=== PATIENT | female | born 1955 | race Caucasian/White ===

== ENCOUNTER 2017-06-04 09:18 | Outpatient (CLI) | payer OTHER ==
[2016-08-28 17:24] VITALS: BP 172/68
[2017-06-04 10:13] LABS: eGFR (African) > 60; eGFR (Non-African) > 60
== END 2017-06-04 09:20 ==
LOC: LAB 09:18
PROVIDERS: ATTEND Family Medicine
DX: I73.9 Peripheral vascular disease, unspecified (principal); E78.5 Hyperlipidemia, unspecified
CPT/HCPCS: 36415; 80053; 80061

== ENCOUNTER 2017-11-12 14:29 | Outpatient (CLI) | payer OTHER ==
[2016-08-28 17:24] VITALS: BP 172/68
[2017-11-12 14:49] LABS: BASOPHILS % 0.7 (0.0-1.5); EOSINOPHILS % 4.4 % (0.0-6.8); MEAN CORPUSCULAR HEMOGLOBIN 32.9 pg (28.0-34.0); MEAN CORPUSCULAR VOLUME 98.5 fl (80.0-100.0); MONOCYTES % 3.4 % (0.0-11.0); NEUTROPHILS # 5.3 # k/uL (1.4-7.7)
== END 2017-11-12 14:30 ==
LOC: LAB 14:29
PROVIDERS: ATTEND Physician Assistant
DX: L29.9 Pruritus, unspecified (principal)
CPT/HCPCS: 36415; 84450; 84460; 85025